=== PATIENT | female | born 1965 | race Caucasian/White ===

== ENCOUNTER → 2019-11-12 | Day surgery (SDC) | payer OTHER ==
--- NOTE | 2019-11-13 16:14 | PATH ---
Surgical Pathology Report Patient Name: TRINITY DICKINSON [facility]. Rec. #: [id number] /Age/Gender: 1965 (Age: 54) / F Account: [id number] Location: [facility] Taken: 11/12/2019 Received: 11/12/2019 Reported: 11/13/2019 Physicians: Bhupendra Steen Specimen(s) Received A: LEFT BREAST SPECIMEN - WITH CALCIFICATIONS B: LEFT BREAST SPECIMEN - WITHOUT CALCIFICATIONS Clinical History Nonpalpable lesion Mammographic findings: Microcalcification, suspicious Final Diagnosis A. LEFT BREAST SPECIMEN WITH CALCIFICATIONS, STEREOTACTIC BIOPSY: BREAST TISSUE SHOWING FLAT EPITHELIAL ATYPIA (FEA) AND ATYPICAL DUCTAL HYPERPLASIA (ADH) WITH ASSOCIATED MICROCALCIFICATIONS. FIBROCYSTIC CHANGES INCLUDING SCLEROSING ADENOSIS, MICROCYSTS, AND STROMAL FIBROSIS ARE ALSO PRESENT. B. LEFT BREAST SPECIMEN WITHOUT CALCIFICATIONS, STEREOTACTIC BIOPSY: BREAST TISSUE SHOWING FLAT EPITHELIAL ATYPIA (FEA) AND ATYPICAL DUCTAL HYPERPLASIA (ADH) WITH ASSOCIATED MICROCALCIFICATIONS. FIBROCYSTIC CHANGES INCLUDING SCLEROSING ADENOSIS, MICROCYSTS, AND STROMAL FIBROSIS ARE ALSO PRESENT. Electronically Signed Jennifer Osuna M.D. Gross Description A. Received in formalin labeled "left breast with calcifications," is a 3.0 x 1.6 x 0.3 cm aggregate of multiple gonzalez-yellow, irregular to cylindrical portions of fibroadipose tissue. The formalin is filtered and the specimen is entirely submitted in 2 cassettes. B. Received in formalin labeled "left breast without calcifications," are 4 gonzalez-yellow, cylindrical portions of fibroadipose tissue ranging from 0.5-2.0 cm in length and averaging 0.2 cm in diameter. The specimens are submitted in toto in one cassette. Time to formalin fixation: 5 minutes Total formalin fixation time: Approximately 6 hours. DL/11/12/2019 saudi/11/12/2019
== END | disposition home or self-care (01) ==
LOC: FMAMMOTONE 09:42
PROVIDERS: ATTEND Internal Medicine
PROC: 0HBU3ZX Excision of Left Breast, Percutaneous Approach, Diagnostic (ICD-10-PCS; principal; 2019-11-12)
DX: N60.12 Diffuse cystic mastopathy of left breast (principal); N60.22 Fibroadenosis of left breast; N60.32 Fibrosclerosis of left breast; N60.92 Unspecified benign mammary dysplasia of left breast; N64.89 Other specified disorders of breast; R92.8 Other abnormal and inconclusive findings on diagnostic imaging of breast
CPT/HCPCS: 19081; 76098-TC-FY; 87899; 88305-TC; A4648